=== PATIENT | female | born 1940 | race Caucasian/White ===

== ENCOUNTER 2018-06-21 14:49 | Emergency (ER) | payer MEDICARE, OTHER ==
[~2018-06-21] VITALS: Ht 162.6 cm; Wt 59.4 kg
--- NOTE | 2018-06-21 15:41 | NUR ---
PATIENT FELL 2 WEEKS AGO. FELL BACKWARDS ON HER TAILBONE. MARIAELENA'S SISTER IS HERE AND SAID "SHE'S HERE CAUSE HER DOCTOR IS CRUMMY." SAW DR PABON ON THURSDAY, HE STARTED PAIENT ON 20 MG ZOLOFT AND INCREASED HER COREG TO 40 OR 50 MG BID, BUT "NO PHARMACY HAD ANY" PATIENT IS TAKING TWO ALEVE BID SINCE FALL AMBULATED TO ER [facility] DOOR, VERY SLOW AND USING A CANE, DOES NOT USE A CANE NORMALLY, WC TO ROOM
--- NOTE | 2018-06-21 15:47 | NUR ---
TO XRAY BY FRANNY
[2018-06-21] MEDS ORDERED: LIDOcaine 5% patch TP STA (16:17)
--- NOTE | 2018-06-21 16:27 | NUR ---
PATIENT AMBULATED TO RESTROOM WITH STEADY GAIT.
[2018-06-21 16:44] VITALS: BP 173/91
== END 2018-06-21 16:45 | disposition home or self-care (01) ==
LOC: ER 14:49
DX: M54.5 Low back pain (principal); Z88.6 Allergy status to analgesic agent; W18.39XA Other fall on same level, initial encounter; Y93.89 Activity, other specified; Y92.098 Other place in other non-institutional residence as the place of occurrence of the external cause; Y99.8 Other external cause status
CPT/HCPCS: 72100; 99284

== ENCOUNTER 2023-05-01 08:29 | Emergency (ER) | payer MEDICARE ==
[~2023-05-01] VITALS: Ht 162.6 cm; Wt 59.1 kg
[2023-05-01 09:34] LABS: BASOPHILS # (AUTO) 0.1 X10'3 (0-0.2); BASOPHILS % (AUTO) 0.8 % (0-1); EOSINOPHILS # (AUTO) 0.1 X10'3 (0-0.9); EOSINOPHILS % (AUTO) 1.3 % (0-6); HEMATOCRIT 38.8 % (35.0-45.0); LYMPHOCYTES # (AUTO) 1.6 X10'3 (1.1-4.8); LYMPHOCYTES % (AUTO) 21.3 % (21-51); MEAN CORPUSCULAR HEMOGLOBIN 31.4 PG (27.0-31.0); MEAN CORPUSCULAR HGB CONC 33.5 g/dL (33.0-36.5); MEAN CORPUSCULAR VOLUME 93.7 FL (78-98); MEAN PLATELET VOLUME 8.9 FL (7.4-10.4); MONOCYTES # (AUTO) 0.7 X10'3 (0-0.9); MONOCYTES % (AUTO) 8.8 % (2-12); NEUTROPHILS # (AUTO) 5.1 X10'3 (1.8-7.7); NEUTROPHILS % (AUTO) 67.8 % (42-75); PLATELET COUNT 164 X10'3 (140-440); RED BLOOD COUNT 4.14 X10'6 (4.20-5.60); RED CELL DISTRIBUTION WIDTH 13.4 % (11.5-14.5); WHITE BLOOD COUNT 7.5 X10'3 (4.5-11.0)
[2023-05-01 09:57] LABS: ALANINE AMINOTRANSFERASE 187 U/L (12-78); ALBUMIN 3.2 G/DL (3.4-5.0); ALBUMIN/GLOBULIN RATIO 0.9 (1.1-1.5); ALKALINE PHOSPHATASE 102 IU/L (46-116); ANION GAP 7 (8-16); ASPARTATE AMINO TRANSFERASE 124 U/L (10-37); BILIRUBIN,TOTAL 0.8 MG/DL (0.1-1.0); BLOOD UREA NITROGEN 21 MG/DL (7-18); BUN/CREATININE RATIO 25.6 (10.0-20.0); CHLORIDE 105 MMOL/L (99-107); CREATININE 0.82 MG/DL (0.40-0.90); GLUCOSE 131 MG/DL (70-104); POTASSIUM 3.8 MMOL/L (3.5-5.1); PRO BRAIN NATRIURETIC PEPTIDE 1921 PG/ML (0-450); SODIUM 139 MMOL/L (135-145); TOTAL CARBON DIOXIDE 26.9 MMOL/L (24-32); TOTAL PROTEIN 6.6 G/DL (6.4-8.2); eCRCL 45 ML/MIN; eGFR 67 ML/MIN
[2023-05-01 13:25] VITALS: BP 107/61; PULSE 54; RESP 16; O2SAT 97
[2023-05-01 13:59] VITALS: TEMP 98.6
== END 2023-05-01 14:16 | disposition home or self-care (01) ==
LOC: ER 08:30
DX: R00.2 Palpitations (principal); R74.01 Elevation of levels of liver transaminase levels; E86.0 Dehydration
CPT/HCPCS: 36415; 71045; 80053; 83690; 83880; 84484; 85025; 93005; 99285